=== PATIENT | male | born 1990 | race Hispanic/Latino ===

== ENCOUNTER → 2021-10-30 15:27 | Outpatient (CLI) | payer OTHER, SELFPAY ==
--- NOTE | 2021-10-30 15:29 | DI.RAD.S_ITS ---
PROCEDURE: XR ANKLE LT MIN 3V INDICATIONS: Left ankle injury TECHNIQUE: 3 views of the ankle were acquired. COMPARISON: None. FINDINGS: Bones: No acute fractures or dislocations. Ankle mortise is normally aligned. No suspicious bony lesions. Soft tissues: Soft tissue edema is seen over the lateral malleolus. IMPRESSION: Nonspecific soft tissue edema over the lateral malleolus. No acute osseous abnormality. If the symptoms persist, consider cross sectional imaging such as MRI or CT for further assessment. Dictated by: Seun Merida M.D. on 10/30/2021 at 20:12 Approved by: Seun Merida M.D. on 10/30/2021 at 20:13
== END ==
PROVIDERS: Referring Provider Nurse Practitioner Family; Visit Provider Nurse Practitioner Family
DX: S99.912A Unspecified injury of left ankle, initial encounter (principal); R60.0 Localized edema
CPT/HCPCS: 73610